=== PATIENT | female | born 1975 | race Caucasian/White ===

== ENCOUNTER 2020-02-23 19:43 | Emergency (ER) | payer OTHER ==
[2020-02-23] MEDS ORDERED: SODIUM CHLORIDE 0.9% 1000ML 1,000 ML IV STA ×2 (19:45→22:18)
[2020-02-23] MEDS ORDERED: ONDANSETRON HCL INJ 2MG/ML 2ML 2 MG/ML VIAL IV STA (19:46)
--- NOTE | 2020-02-23 19:46 | Emergency Department Note ---
History of Present Illnes History of Present Illness History of Present Illness This is a 44 year old female brought by family for possible overdose. Patient seen at bedside with heavy aroma of ETOH. Denies SI or HI. States that she did NOT overdose on her propanolol. Patient is a recovering alcoholic, patient states that she may have passed out with resultant head injury Historian: Patient, Family Member Arrival Mode: Car Onset (how long ago): hour(s) Radiation: Reports non-radiation Severity: moderate Onset quality: gradual Duration (how long): hour(s) Timing of current episode: constant Progression: worsening Chronicity: new Context: Denies recent illness, Denies recent surgery, Denies recent immobilization, Denies recent travel, Denies trauma/injury, Denies new medications, Denies hx of DVT/PE, Denies non-compliance w/ medications, Denies other Relieving factors: none Exacerbating factors: none Past Medical/Family History Physician Review I have reviewed the patient's past medical and family history. Any updates have been documented here. Past Medical History Recent Fever: No Clinical Suspicion of Infectio: No New/Unexplained Change in Ment: Yes Past Medical History: Anxiety, Depression Social History Smoking Cessation: Never Smoker Alcohol Use: None Any Illegal Drug Use: No Review of Systems Review of Systems Constitutional: Reports no symptoms EENTM: Reports no symptoms Cardiovascular: Reports no symptoms Respiratory: Reports no symptoms Gastrointestinal: Reports no symptoms Genitourinary: Reports no symptoms Musculoskeletal: Reports no symptoms Integumentary: Reports no symptoms Neurological: Reports headache Psychological: Reports no symptoms Endocrine: Reports no symptoms Hematological/Lymphatic: Reports no symptoms Physical Exam Related Data Allergies: Coded Allergies: No Known Allergies (Unverified , 02/23/20) Vital signs reviewed: Yes Physical Exam CONSTITUTIONAL Constitutional: Present well-developed, Present distressed, Present other (intoxicated) HENT HENT: Present normocephalic, Present atraumatic, Present oropharynx clear/moist, Present nose normal HENT L/R: Present left ext ear normal, Present right ext ear normal EYES Eyes: Reports PERRL, Reports conjunctivae normal NECK Neck: Present ROM normal PULMONARY Pulmonary: Present effort normal, Present breath sounds normal CARDIOVASCULAR Cardiovascular: Present regular rhythm, Present heart sounds normal, Present capillary refill normal, Present normal rate GASTROINTESTINAL Abdominal: Present soft, Present nontender, Present bowel sounds normal GENITOURINARY Genitourinary: Present exam deferred SKIN Skin: Present warm, Present dry MUSCULOSKELETAL Musculoskeletal: Present ROM normal NEUROLOGICAL Neurological: Present alert, Present oriented x 3, Present no gross motor or sensory deficits PSYCHOLOGICAL Psychological: Present mood/affect normal, Present judgement normal Results Laboratory Lab results reviewed: Yes Imaging Imaging results reviewed: Yes Impressions [place] [address] Patient Name: FARAZ JOSEPH MR #: [id number] : 1975 Age/Sex: 44/F Req #: [id number] Adm Physician: Ordered by: MARY BARNETT DO Report #: [id number] Location: ER Room/Bed: Procedure: [id number] CT/CT BRAIN WO Exam Date: 02/23/20 Exam Time: 2154 REPORT STATUS: Signed Exam: Head CT without contrast History: Overdose, fall Comparison studies: None Technique: Axial images were obtained from the skull base to the vertex. Coronal and sagittal images reconstructed from the axial data. Dose modulation, iterative reconstruction, and/or weight based adjustment of the mA/kV was utilized to reduce the radiation dose to as low as reasonably achievable. Radiation dose: Total DLP: 921 mGy*cm. Estimated effective dose: DLP x 0.015 Intravenous contrast: None Findings: Scalp: No abnormalities. Bones: No fractures, blastic or lytic lesions. Brain sulci: Mildly prominent. Ventricles: Mild compensatory dilatation. No hydrocephalus. Extra-axial spaces: No masses, no fluid collection. Parenchyma: No abnormal densities. No masses, acute hemorrhage, acute or chronic vascular insults. Sellar/suprasellar region: No abnormalities. Craniocervical junction: Patent foramen magnum. No Chiari one malformation. IMPRESSION: 1. No acute intracranial abnormalities. 2. Mild generalized parenchyma volume loss. Signed by: Dr. Brianna Horan M.D. on 02/23/2020 10:25 PM Dictated By: BRIANNA HORAN MD 24 Transcribed By: LES on 02/23/202224 COPY TO: MARY BARNETT DO~ Assessment & Plan Medical Decision Making MDM diff dx : overdose, suicide attempt, alcohol intoxication, head injury following inebriation Assessment & Plan Final Impression: (1) Alcohol intoxication Depart Disposition: HOME, SELF-CARE MARY BARNETT DO Feb 23, 2020 19:46
[2020-02-23] MEDS ORDERED: ACETAMINOPHEN 325 MG TAB PO STA (20:25)
[2020-02-23 20:37] LABS: AMPHETAMINES SCREEN,URINE NEGATIVE (NEGATIVE); BENZODIAZEPINES SCREEN,URINE NEGATIVE (NEGATIVE); PHENCYCLIDINE SCREEN,URINE NEGATIVE (NEGATIVE)
[2020-02-23 21:21] LABS: BASOPHILS % 0.3 % (0.0-1.0); EOSINOPHILS % 0.1 % (0.0-6.0); HEMATOCRIT 41.3 % (34.2-44.1); HEMOGLOBIN 13.7 g/dL (12.0-16.0); LYMPHOCYTES # (AUTO) 1.5 (1.0-3.2); LYMPHOCYTES % 13.7 % (18.0-39.1); MEAN CORPUSCULAR HEMOGLOBIN 29.6 pg (28-32); MEAN CORPUSCULAR HGB CONC 33.2 g/dL (31-35); MEAN CORPUSCULAR VOLUME 89.2 fL (81-99); MONOCYTES # (AUTO) 0.4 (0.2-0.8); MONOCYTES % 3.3 % (4.4-11.3); NEUTROPHILS # (AUTO) 9.2 (2.1-6.9); NEUTROPHILS % 82.2 % (38.7-80.0); PLATELET COUNT 344 x10e3/uL (140-360); RED BLOOD COUNT 4.63 x10e6/uL (3.6-5.1); RED CELL DISTRIBUTION WIDTH 13.6 % (11.7-14.4)
[2020-02-23] MEDS ORDERED: LORAZEPAM INJ 2 MG/ML VIAL ONE (21:22)
[2020-02-23] MEDS ORDERED: LORAZEPAM INJ 2 MG/ML VIAL IV ONE (21:30)
[2020-02-23 21:41] LABS: ALANINE AMINOTRANSFERASE 25 IU/L (0-55); ALBUMIN 4.2 g/dL (3.5-5.0); ALBUMIN/GLOBULIN RATIO 1.4 (0.8-2.0); ALKALINE PHOSPHATASE 98 IU/L (40-150); ANION GAP 23.9 mmol/L (8-16); BLOOD UREA NITROGEN 16 mg/dL (7-26); BUN/CREATININE RATIO 23 (6-25); CALCIUM 8.6 mg/dL (8.4-10.2); CARBON DIOXIDE 20 mmol/L (22-29); CHLORIDE 102 mmol/L (98-107); CREATININE, SERUM 0.71 mg/dL (0.57-1.11); EST GLOMERULAR FILTRATION RATE > 60 ML/MIN (60-); GLUCOSE 82 mg/dL (74-118); POTASSIUM 3.9 mmol/L (3.5-5.1); SODIUM 142 mmol/L (136-145)
--- NOTE | 2020-02-23 22:29 | Diagnostic Imaging Report ---
Exam: Head CT without contrast History: Overdose, fall Comparison studies: None Technique: Axial images were obtained from the skull base to the vertex. Coronal and sagittal images reconstructed from the axial data. Dose modulation, iterative reconstruction, and/or weight based adjustment of the mA/kV was utilized to reduce the radiation dose to as low as reasonably achievable. Radiation dose: Total DLP: 921 mGy*cm. Estimated effective dose: DLP x 0.015 Intravenous contrast: None Findings: Scalp: No abnormalities. Bones: No fractures, blastic or lytic lesions. Brain sulci: Mildly prominent. Ventricles: Mild compensatory dilatation. No hydrocephalus. Extra-axial spaces: No masses, no fluid collection. Parenchyma: No abnormal densities. No masses, acute hemorrhage, acute or chronic vascular insults. Sellar/suprasellar region: No abnormalities. Craniocervical junction: Patent foramen magnum. No Chiari one malformation. IMPRESSION: 1. No acute intracranial abnormalities. 2. Mild generalized parenchyma volume loss. Signed by: Dr. Brian Brown M.D. on 02/23/2020 10:25 PM
--- OUTSIDE RECORDS SUMMARY | 2020-02-23 22:48 | XMS REPORT | Continuity of Care Document ---
Author Author [facility] t Organization [facility] Address [address] [place] [address] Phone Unavailable Care Team Providers Care Loader Engineer Name Role Phone Kirsty QUIROGA, Primo PCP [phone] MARY BARNETT Attphys Unavailable Anabel MAYERN, Yanelis Ira Attphys Unavailable Estuardo QUIROGA, P Nihita Attphys Kirsty QUIROGA, Primo Attphys [phone] Carrie RN, A April Attphys Unavailable Gabe QUIROGA, Tyra Denis Attphys Payers Payer Name Policy Type Policy Number Effective Date Expiration Date [id number] SCREENEDxxxxxxx5/3 04/[id number] [place] [address] xxxxxxx 2018 00:00:00 2028 2 3:59:59 [facility] Problems Condition Name Condition Details Condition Category Status Onset Date Resolution Date Last Treatment Date Treating Clinician Comments Source Renal calculi Renal calculi Disease Active 2018-06-13 00:00:00 [facility] Fatty liver Fatty liver Disease Active 2018-06-13 00:00:00 [facility] Depression Depression Disease Active 2017-11-10 00:00:00 Overview: REports not currently a problem, [facility] Migraines Migraines Disease Active 2017-11-10 00:00:00 Overview: H/o regular migraines, managed by PCPOn Imitrex, reports 4-[address] [facility] General counseling and advice on contraceptive managem ent General counseling and advice on contraceptive management Disease Active 2017-11-10 00:00:00 Overview: Patient reports desire to have contracption. Contraindications to OCP include active smoking and h/o migraines with auraWill recommend progesterone only options. Discussed POPs, Nexplanon, Paragard vs. Liletta or barrier options. Patient at this time requests POPs, discussed importance of timing and backup contraception if >3 hour delay in taking medication. Patient will consider IUD and return for procedure visit if she desires one. [facility] Dysmenorrhea Dysmenorrhea Disease Active 2017-11-10 00:00:00 Overview: Patient reports painful periods x1 year, only during periods in lower pelvisHas tried naproxen and ibuprofen with some reliefDiscussed progesterone only pills and re-eval pain [facility] care maintenance Health care maintenance Disease Active 2016-10-27 00:00:00 Overview: Pap 09/2017 NILM, H PV negMammo 08/[address] [facility] Allergies, Adverse Reactions, Alerts This patient has no known allergies or adverse reactions. Family History Family Member Diagnosis Comments Start Date Stop Date Source Natural father Alzheimer's disease [facility] Natural father Heart [facility] Natural father Hypertension [facility] Natural mother Breast cancer [facility] Social History Social Habit Start Date Stop Date Quantity Comments Source Sex Assigned At [facility] Cigarettes smoked current (pack per day) - Reported 00:00:00 2018-12-01 00:00:00 [facility] Cigarette pack-years 2018-12-01 00:00:00 2018-12-01 00:00:00 [facility] Alcohol intake 2018-12-01 00:00:00 2018-12-01 00:00:00 Current non-drinker of alcohol (finding) [facility] SDOH Food Worry 2018-06-13 00:00:00 2018-06-13 00:00:00 1 [facility] SDGA Food Scarcity 2018-06-13 00:00:00 2018-06-13 00:00:[address] [facility] Tobacco Comment 2017-08-23 00:00:00 2017-08-23 00:00:00 pt state s smokes half a pack/day [facility] Alcohol Comment 2015-12-12 00:00:00 2015-12-12 00:00:00 stopped 2013; [facility] Smoking Status Start Date Stop Date Source Current every day smoker 2018-12-01 00:00:00 [facility] Medications Ordered Medication Name Filled Medication Name Start Date Stop Da te Current Medication? Ordering Clinician Indication Dosage Frequency Signature (SIG) Comments Components Source norethindrone (NOR-Q-D) 0.35 mg tablet 2019-07-06 00:00:00 Yes Health care maintenance 1{tbl} QD Take 1 tablet by mouth daily. [facility] SUMAtriptan (IMITREX) 25 mg tablet 2019-06-22 00:00:00 Yes Migraine without status migrainosus, not intractable, unspecified migraine type Take 1 tablet by mouth at onset of headache. Repeat after 2 hours if needed. [id number]/[address] [facility] SUMAtriptan (IMITREX) 25 mg tablet 2019-05-10 00:00:00 00:00:00 No Migraine without status migrainosus, not intractable, unspecified migraine type Take 1 tablet by maxx th at onset of headache. Repeat after 2 hours if needed. [id number]/[address] [facility] SUMAtriptan (IMITREX) 25 mg tablet 2019-04-12 00:00:00 00:00:00 No Migraine without status migrainosus, not intractable, unspecified migraine type Take 1 tablet by maxx th at onset of headache. Repeat after 2 hours if needed. [id number]/[address] [facility] SUMAtriptan (IMITREX) 25 mg tablet 2019-03-22 00:00:00 00:00:00 No Migraine without status migrainosus, not intractable, unspecified migraine type Take 1 tablet by maxx th at onset of headache. Repeat after 2 hours if needed. [id number]/[address] [facility] propranolol (INDERAL) 10 mg tablet 2019-03-14 00:00:00 Yes Essential hypertension 10mg Take 1 tablet by maxx th 3 times daily For hypertension and migraine prevention and anxiety. [facility] eszopiclone (LUNESTA) 3 mg tablet 2019-02-27 00:00:00 Yes Insomnia, unspecified type 3mg Take 1 tablet by maxx th nightly at bedtime as needed for insomnia. [facility] norethindrone (MICRONOR) 0.35 mg tablet 00:00:00 2019-07-06 00:00:00 No Health care maintenance 1{tbl} QD Take 1 tablet b y mouth daily. [facility] SUMAtriptan (IMITREX) 25 mg tablet 2019-01-29 00:00:00 12-14-17 00:00:00 No Migraine without status migrainosus, not intractable, unspecified migraine type Take 1 tablet by maxx th at onset of headache. Repeat after 2 hours if needed. [id number]/[address] [facility] propranolol (INDERAL) 10 mg tablet 2019-01-29 00:00:00 12-14-10 00:00:00 No Essential hypertension 10mg Take 1 ta blet by mouth 3 times daily For hypertension and migraine prevention and anxiety. [facility] cyclobenzaprine (FLEXERIL) 10 mg tablet 2019-01-09 00:00:00 Yes Low back pain with bilateral sciatica, unspecified back pain laterality, unspecified chronicity 10mg Take 1 tablet by maxx th nightly at bedtime as needed for Muscle Spasms. [facility] gabapentin (NEURONTIN) 300 mg capsule 2019-01-09 00:00:00 Yes Low back pain with bilateral sciatica, unspecified back pain laterality, unspecified chronicity 300mg Take 1 capsule by mouth 3 times daily For nerve pain. [facility] PARoxetine (PAXIL) 20 mg tablet 2019-01-08 00:00:00 Yes Moderate episode of recurrent major depressive disorder 20mg T nisa 1 tablet by mouth every evening. [facility] eszopiclone (LUNESTA) 3 mg tablet 2019-01-08 00:00:00 2018 00:00:00 No Insomnia, unspecified type 3mg Take 1 tablet by mouth nightly at bedtime as needed for insomnia. [facility] naproxen (NAPROSYN) 500 mg tablet 2018-06-13 00:00:00 Yes Chronic midline back pain, unspecified back location 500mg Tacos e 1 tablet by mouth 2 times daily (with meals). [facility] varenicline (CHANTIX) 1 mg tablet 2018-04-25 00:00:00 Ye s Tobacco abuse 1mg Q.5D Take 1 tablet by mouth [address] [facility] norethindrone (NOR-Q-D) 0.35 mg tablet 2018-03-05 0 00:00:00 2019-02-23 00:00:00 No Health care maintenance 1{tbl} QD Take 1 tablet by mouth daily. [facility] atorvastatin (LIPITOR) 20 mg tablet 2018-02-20 00:00:00 Yes Pure hypercholesterolemia 20mg Take 1 tablet by [facility] at bedtime nightly For cholesterol. [facility] varenicline (CHANTIX) 0.5 mg tablet 2017-11-24 00:00:00 Yes Tobacco abuse .5mg Q.5D Take 1 tablet by mouth [address] [facility] albuterol 90 mcg/actuation inhaler 2017-11-24 00:00:00 Yes Obstructive chronic bronchitis with exacerbation 2{puff} Inh neda 2 Puffs by mouth every 4 hours as needed for Wheezing or Shortness of Breath. [facility] albuterol (VENTOLIN HFA,PROVENTIL HFA,PROAIR HFA) 90 mcg/act uation inhaler 2017-05-30 00:00:00 Yes Wheezing 2{puff} Inhale 2 Puffs by mouth 4 times daily as needed for Wheezing or Shortness of Breath. [facility] Immunizations Ordered Immunization Name Filled Immunization Name Date Status Comments Source PPD 2016-10-26 00:00:[address] [facility] Tdap (Tetanus Toxoid, Reduced Diphtheria Toxoid And Acellular Pertussis, Absorbed) 2016-10-19 00:00:00 Completed [facility] Procedures This patient has no known procedures. Plan of Care Planned Activity Planned Date Details Comments Source Future Scheduled Test 2022-08-23 00:00:00 Screening for libia gnant neoplasm of cervix (procedure) [code = 093958612] [facility] Scheduled Test 2022-08-23 00:00:00 Screening for libia gnant neoplasm of cervix (procedure) [code = 931966420] [facility] Scheduled Test 2018-07-29 00:00:00 Breast Cancer Scrn (Yearly) [code = Breast Cancer Scrn (Yearly)] [facility] Encounters Start Date/Time End Date/Time Encounter Type Admission Type [facility] Care Department Encounter ID Source 2018-12-01 14:27:40 2018-12-01 14:27:40 Outpatient [facility] [id number] [facility] 2018-11-01 00:00:00 2018-11-01 00:00:00 Outpatient [facility] [id number] [facility] 2018-08-30 07:56:54 2018-08-30 07:56:54 Outpatient [facility] [id number] [facility] 2018-07-31 00:00:00 2018-07-31 00:00:00 Out[address] [facility] [id number] [facility] 2018-07-11 00:00:00 2018-07-11 00:00:00 Out[address] [facility] [id number] [facility] 2018-06-21 00:00:00 2018-06-21 00:00:00 Outpatient [facility] [id number] [facility] 2018-06-16 00:00:00 2018-06-16 00:00:00 [address] [facility] [id number] [facility] 2018-06-13 09:25:33 2018-06-13 09:25:33 [address] [facility] [id number] [facility] 2018-02-18 00:00:00 2018-02-18 00:00:00 [address] [facility] [id number] [facility] 2018-02-01 15:06:47 2018-02-01 15:06:47 [address] [facility] [id number] [facility] 2018-01-30 00:00:00 2018-01-30 00:00:00 Out[address] [facility] [id number] [facility] 2018-01-25 00:00:00 2018-01-25 00:00:[address] [facility] [id number] [facility] 2018-01-25 00:00:00 2018-01-25 00:00:00 Out[address] [facility] [id number] [facility] 2018-01-23 00:00:00 2018-01-23 00:00:00 Out[address] [facility] [id number] [facility] 2018-01-23 00:00:00 2018-01-23 00:00:[address] [facility] [id number] [facility] 2017-12-12 00:00:00 2017-12-12 00:00:[address] [facility] [id number] [facility] 2017-11-24 10:39:50 2017-11-24 10:39:50 [address] [facility] [id number] [facility] 2017-11-10 09:42:14 2017-11-10 09:42:14 [address] [facility] [id number] [facility] 2017-11-10 00:00:00 2017-11-10 00:00:[address] [facility] [id number] [facility] 2017-11-10 00:00:00 2017-11-10 00:00:[address] [facility] [id number] [facility] 2017-11-09 00:00:00 2017-11-09 00:00:00 [address] [facility] [id number] [facility] 2017-11-09 00:00:00 2017-11-09 00:00:00 Out[address] [facility] [id number] [facility] 2017-10-27 00:00:00 2017-10-27 00:00:[address] [facility] [id number] [facility] 2017-10-27 00:00:00 2017-10-27 00:00:[address] [facility] [id number] [facility] 2017-10-17 00:00:00 2017-10-17 00:00:[address] [facility] [id number] [facility] 2017-10-13 00:00:00 2017-10-13 00:00:[address] [facility] [id number] [facility] 2017-09-28 00:00:00 2017-09-28 00:00:00 [address] [facility] [id number] [facility] 2017-09-07 09:47:34 2017-09-07 09:47:34 [address] [facility] [id number] [facility] 2017-08-25 10:51:22 2017-08-25 10:51:[address] [facility] [id number] [facility] 2017-08-23 13:22:24 2017-08-23 13:22:24 [address] [facility] [id number] [facility] 2017-08-23 08:32:19 2017-08-23 08:32:19 [address] [facility] [id number] [facility] 2017-08-16 10:05:19 2017-08-16 10:05:19 [address] [facility] [id number] [facility] 2017-08-16 08:45:30 2017-08-16 08:45:30 [address] [facility] [id number] [facility] 2017-08-16 00:00:00 2017-08-16 00:00:00 [address] [facility] [id number] [facility] 2017-08-12 08:42:22 2017-08-12 08:42:22 [address] [facility] [id number] [facility] 2017-08-12 08:42:12 2017-08-12 08:42:12 [address] [facility] [id number] [facility] 2017-08-10 00:00:00 2017-08-10 00:00:[address] [facility] [id number] [facility] 2017-08-10 00:00:00 2017-08-10 00:00:[address] [facility] [id number] [facility] 2017-07-29 18:31:44 2017-07-29 18:31:[address] [facility] [id number] [facility] 2017-07-29 09:38:27 2017-07-29 09:38:27 [address] [facility] [id number] [facility] 2017-07-12 10:59:52 2017-07-12 10:59:52 [address] [facility] [id number] [facility] 2017-07-12 10:00:53 2017-07-12 10:00:53 [address] [facility] [id number] [facility] 2017-01-14 00:00:00 2017-01-14 00:00:[address] [facility] [id number] [facility] 2017-01-13 00:00:00 2017-01-13 00:00:00 [address] [facility] [id number] [facility] 2016-11-29 00:00:00 2016-11-29 00:00:00 Out[address] [facility] [id number] [facility] 2016-11-23 00:00:00 2016-11-23 00:00:[address] [facility] [id number] [facility] 2016-11-23 00:00:00 2016-11-23 00:00:00 Out[address] [facility] [id number] [facility] 2016-11-05 00:00:00 2016-11-05 00:00:[address] [facility] [id number] [facility] 2016-10-28 10:27:55 2016-10-28 10:27:[address] [facility] [id number] [facility] 2016-10-27 11:24:00 2016-10-27 11:24:00 [address] [facility] [id number] [facility] 2016-10-27 10:03:36 2016-10-27 10:03:36 [address] [facility] [id number] [facility] 2016-10-26 10:07:58 2016-10-26 10:07:58 [address] [facility] [id number] [facility] 2016-10-21 00:00:00 2016-10-21 00:00:[address] [facility] [id number] [facility] 2016-10-19 09:59:26 2016-10-19 09:59:26 [address] [facility] [id number] [facility] 2016-10-19 08:03:07 2016-10-19 08:03:07 Outpatient [facility] [id number] [facility] Results Test Description Test Time Test Comments Results Result Comments Source CT BRAIN WO 2020-02-23 22:22:00 [facility] 1975 Sex: [place] [address] Patient Name: FARAZ STACK MR #: [id number] : 1975 Age/Sex: 44/F Req #: [id number] Adm Physician: Ordered by: MARY BARNETT DO Report #: [id number] Location: Room/Bed: Procedure: [id number] CT/CT BRAIN WO Exam Date: 02/23/20 Exam Time: 2154 REPORT STATUS: Signed Exam: Head CT without contrast History: Overdose, fall Comparison studies: None Technique: Axial images were obtained from the skull base to the vertex. Coronal and sagittal images reconstructed from the axial data. Dose modulation, iterative reconstruction, and/or weight based adjustment of the mA/kV was utilized to reduce the radiation dose to as low as reasonably achievable. Radiation dose: Total DLP: 921 mGy*cm. Estimated effective dose: DLP x 0.015 Intravenous contrast: None Findings: Scalp: No abnormalities. Bones: No fractures, blastic or lytic lesions. Brain sulci: Mildly prominent. Vent ricles: Mild compensatory dilatation. No hydrocephalus. Extra-axial spaces: No masses, no fluid collection. Parenchyma: No abnormal densities. No masses, acute hemorrhage, acute or chronic vascular insults. Sellar/suprasellar region: No abnormalities. Craniocervical junction: Patent foramen magnum. No Chiari one malformation. IMPRESSION: 1. No acute intracranial abnormalities. 2. Mild generalized parenchyma volume loss. Signed by: Dr. Brianna Brown M.D. on 02/23/2020 10:25 PM Dictated By: BRIANNA BROWN MD 24 Transcribed By: LES on 02/23/202224 COPY TO: MARY BARNETT DO
--- OUTSIDE RECORDS SUMMARY | 2020-02-23 22:48 | XMS REPORT | Clinical Summary ---
Author Author [facility] Organization [facility] Address Unknown Phone Unavailable Care Team Providers [employer] Associate Name Role Phone Primo Lofton MD PCP Pcp, No PCP Unavailable Allergies No Known Allergies Medications End Date Status Medication Sig Dispensed Refills Start Date Active albuterol (VENTOLIN Inhale 2 6.7 g 0 HFA,PROVENTIL HFA,PROAIR Puffs by 8 HFA) 90 mcg/actuation mouth 4 times inhalerIndications: daily as Wheezing needed for Wheezing or Shortness of Breath. Active varenicline (CHANTIX) 0.5 Take 1 tablet 14 tablet 0 mg tabletIndications: by mouth 2 8 Tobacco abuse times daily. Active albuterol 90 Inhale 2 20.1 g 3 mcg/actuation Puffs by 8 inhalerIndications: mouth every 4 Obstructive chronic hours as bronchitis with needed for exacerbation Wheezing or Shortness of Breath. Active atorvastatin (LIPITOR) 20 Take 1 tablet 90 tablet 0 mg tabletIndications: by mouth at 8 Pure hypercholesterolemia bedtime nightly For cholesterol. Active varenicline (CHANTIX) 1 Take 1 tablet 60 tablet 3 mg tabletIndications: by mouth 2 9 Tobacco abuse times daily. Active naproxen (NAPROSYN) 500 Take 1 tablet 40 tablet 1 mg tabletIndications: by mouth 2 9 Chronic midline back times daily pain, unspecified back (with meals). location Active cyclobenzaprine Take 1 tablet 90 tablet 0 01/10/20 1 (FLEXERIL) 10 mg by mouth 9 tabletIndications: Low nightly at back pain with bilateral bedtime as sciatica, unspecified needed for back pain laterality, Muscle unspecified chronicity Spasms. Active gabapentin (NEURONTIN) Take 1 270 capsule 0 300 mg capsule by 9 capsuleIndications: Low mouth 3 times back pain with bilateral daily For sciatica, unspecified nerve pain. back pain laterality, unspecified chronicity Active PARoxetine (PAXIL) 20 mg Take 1 tablet 30 tablet 1 tabletIndications: by mouth 9 Moderate episode of every recurrent major evening. depressive disorder Active eszopiclone (LUNESTA) 3 Take 1 tablet 30 tablet 0 mg tabletIndications: by mouth 9 Insomnia, unspecified nightly at type bedtime as needed for insomnia. Active propranolol (INDERAL) 10 Take 1 tablet 270 tablet 0 mg tabletIndications: by mouth 3 9 Essential hypertension times daily For hypertension and migraine prevention and anxiety. Active SUMAtriptan (IMITREX) 25 Take 1 tablet 18 tablet 6 mg tabletIndications: by mouth at 0 Migraine without status onset of migrainosus, not headache. intractable, unspecified Repeat after migraine type 2 hours if needed. [id number]/ 24 hours.. Active norethindrone (NOR-Q-D) Take 1 tablet 28 Each 11 0.35 mg by mouth 0 tabletIndications: Health daily. care maintenance 02/23/2019 Discontinued (Reorder) norethindrone (NOR-Q-D) Take 1 tablet 28 Each 11 0.35 mg by mouth 8 tabletIndications: Health daily. care maintenance 02/27/2019 Discontinued (Reorder) eszopiclone (LUNESTA) 3 Take 1 tablet 30 tablet 1 mg tabletIndications: by mouth 9 Insomnia, unspecified nightly at type bedtime as needed for insomnia. 03/21/2019 Discontinued (Reorder) SUMAtriptan (IMITREX) 25 Take 1 tablet 9 tablet 0 mg tabletIndications: by mouth at 9 Migraine without status onset of migrainosus, not headache. intractable, unspecified Repeat after migraine type 2 hours if needed. [id number]/ 24 hours.. 03/14/2019 Discontinued (Reorder) propranolol (INDERAL) 10 Take 1 tablet 270 tablet 0 mg tabletIndications: by mouth 3 9 Essential hypertension times daily For hypertension and migraine prevention and anxiety. 07/06/2019 Discontinued (Reorder) norethindrone (MICRONOR) Take 1 tablet 28 Each 11 0.35 mg by mouth 9 tabletIndications: Health daily. care maintenance 04/12/2019 Discontinued (Reorder) SUMAtriptan (IMITREX) 25 Take 1 tablet 9 tablet 0 mg tabletIndications: by mouth at 9 Migraine without status onset of migrainosus, not headache. intractable, unspecified Repeat after migraine type 2 hours if needed. [id number]/ 24 hours.. 05/10/2019 Discontinued (Reorder) SUMAtriptan (IMITREX) 25 Take 1 tablet 9 tablet 0 mg tabletIndications: by mouth at 0 Migraine without status onset of migrainosus, not headache. intractable, unspecified Repeat after migraine type 2 hours if needed. [id number]/ 24 hours.. 06/21/2019 Discontinued (Reorder) SUMAtriptan (IMITREX) 25 Take 1 tablet 9 tablet 0 mg tabletIndications: by mouth at 0 Migraine without status onset of migrainosus, not headache. intractable, unspecified Repeat after migraine type 2 hours if needed. [id number]/ 24 hours.. Active Problems Problem Noted Date Renal calculi 06/13/2018 Fatty liver 06/13/2018 Depression 11/10/2017 Overview: REports not currently a problem, Migraines 11/10/2017 Overview: H/o regular migraines, managed by PCP On Imitrex, reports 4-5 times a month General counseling and advice on contraceptive manage ment 11/10/2017 Overview: Patient reports desire to have contracp tion. Contraindications to OCP include active smoking and h/o migraine s with aura Will recommend progesterone only option s. Discussed POPs, Nexplanon, Paragard vs. Liletta or barrier options . Patient at this time requests POPs, discussed importance of timing an d backup contraception if >3 hour delay in taking medication. Patient kurtis l consider IUD and return for procedure visit if she desires one. Dysmenorrhea 11/10/2017 Overview: Patient reports painful periods x1 year , only during periods in lower pelvis Has tried naproxen and ibuprofen with s ome relief Discussed progesterone only pills and re-eval pain Health care maintenance 10/27/2016 Overview: Pap 09/2017 NILM, HPV neg Mammo 08/2017 WNL Encounters Care Team Description Date Type Specialty Ira Little LVN Medications 07/06/2019 Refill Family Practice Carmen Marte MD Medications 06/24/2019 Refill Family Practice Primo Lofton MD Medications 06/21/2019 Refill Family Practice Carmen Marte MD Medications 06/21/2019 Refill Family Practice Primo Lofton MD Medications 05/10/2019 Refill Family Practice Carmen Marte MD Medications 05/10/2019 Refill Family Practice Primo Lofton MD Medications 04/12/2019 Refill Family Practice Carmen Marte MD Medications 04/12/2019 Refill Family Practice Carmen Marte MD Medications 04/10/2019 Refill Family Practice Primo Lofton MD Medications 03/21/2019 Refill Family Practice Carmen Marte MD Medications 03/21/2019 Refill Family Practice April Butler RN Medications 03/14/2019 Refill Family Practice Carmen Marte MD Medications 03/07/2019 Refill Family Practice Cira Bernal MD Medications 02/27/2019 Refill Psychiatry Carmen Marte MD Medications 02/27/2019 Refill Family Practice Primo Lofton MD Medications 02/23/2019 Refill Family Practice after 02/22/2019 Immunizations Name Administration Dates Next Due Influenza, Seasonal, 05/30/2017 (Deferred: Patie nt Refused) Injectable MMR (Measles, Mumps and 10/27/2016 (Deferred: Contr aindication) Rubella) PPD 10/26/2016 Pneumoccoccal 11/28/2013 (Deferred: Patie nt Refused), 11/21/2013 (Deferred: Other - Pt stated she is try ing to get , and will take after her pregn renata.) Tdap (Tetanus Toxoid, 10/19/2016 Reduced Diphtheria Toxoid And Acellular Pertussis, Absorbed) Family History Medical History Relation Name Comments Alzheimer's disease Father Heart Father Hypertension Father Breast cancer Mother Relation Name Status Comments Brother murdered- shot in t he head Father Maternal Grandfather Maternal Grandmother Mother Alive Paternal Grandfather Paternal Grandmother Sister Alive Social History Date Tobacco Use Types Packs/Day Years Used Current Every Day Smoker 0.5 10 Smokeless Tobacco: Current User Tobacco Cessation: Counseling Given: No Comments: pt states smokes half a pack/day Drinks/Week oz/Week Comments Alcohol Use 0 Standard drinks or equivalent 0.0 stopped 2013; No Food Insecurity Answer Date Recorded Within the past 12 months, you worried that your Never north e 06/13/2018 food would run out before you got money to buy more. Within the past 12 months, the food you bought Never true 06/13/2018 just didn't last and you didn't have mo kristal to get more. Sex Assigned at Date Recorded Not on file Industry Job Start Date Occupation Not on file Not on file Not on file Travel End Travel History Travel Start No recent travel history available. Last Filed Vital Signs Not on file Plan of Treatment Health Maintenance Due Date Last Done Comments Breast Cancer Scrn 07/29/2018 07/29/2017, (Yearly) 01/14/2016 HPV Cervical Cancer Scrn 08/23/2022 08/23/2017 Pap Cervical Cancer Scrn 08/23/2022 08/23/2017 Results Not on fileafter 02/22/2019 Insurance Type Payer Benefit Subscriber ID Effective Phone Address Plan / Dates Group [facility] SELF-PAY SELF-PAY xxxxxxx 2018- [phone] [id number] [place] [address] Victim
== END 2020-02-24 00:45 | disposition home or self-care (01) ==
LOC: ER 19:47
DX: F10.129 Alcohol abuse with intoxication, unspecified (principal); F41.9 Anxiety disorder, unspecified; F32.9 Major depressive disorder, single episode, unspecified
CPT/HCPCS: 36415; 70450; 80053; 80307; 80320; 85025; 99284; J2060; J2405; J7030